=== PATIENT | female | born 1990 | race Two or more races ===

== ENCOUNTER 2020-08-31 17:18 | Emergency (ER) | payer OTHER ==
[~2020-08-31] VITALS: Ht 154.9 cm; Wt 72.6 kg
[2020-08-31] MEDS ORDERED: HUMALOG100 UNIT/2 (17:32)
[2020-08-31] MEDS ORDERED: BUTALBIT-ACETA1 EACH PO (20:32)
== END 2020-08-31 20:57 | disposition home or self-care (01) ==
LOC: ER 17:18
DX: G43.809 Other migraine, not intractable, without status migrainosus (principal); Z03.818 Encounter for observation for suspected exposure to other biological agents ruled out

== ENCOUNTER 2020-09-11 20:36 | Emergency (ER) | payer OTHER ==
[~2020-09-11] VITALS: Ht 154.9 cm; Wt 72.6 kg
[~2020-09-11 20:36] MED LIST: BUTALBIT-ACETA1 EACH PO; HUMALOG100 UNIT/2
[2020-09-11] MEDS ORDERED: JENTADUETO 2.51 EAC2 PO (20:43)
[2020-09-11] MEDS ORDERED: ZOFRAN8 MG PO (23:08)
[2020-09-11] MEDS ORDERED: CARAFATE1 GM PO (23:08)
== END 2020-09-11 23:49 | disposition home or self-care (01) ==
LOC: ER 20:36
DX: K29.60 Other gastritis without bleeding (principal)

== ENCOUNTER 2021-03-30 21:46 | Emergency (ER) | payer OTHER ==
[~2021-03-30] VITALS: Ht 154.9 cm; Wt 74.4 kg
[~2021-03-30 21:46] MED LIST changes: +CARAFATE1 GM PO; +JENTADUETO 2.51 EAC2 PO; +ZOFRAN8 MG PO
[2021-03-30] MEDS ORDERED: JANUMET 50-1,01 EACH PO (21:53)
== END 2021-03-31 10:04 | disposition home or self-care (01) ==
LOC: ER 21:46
DX: E11.65 Type 2 diabetes mellitus with hyperglycemia (principal)

== ENCOUNTER 2022-07-11 21:47 | Emergency (ER) | payer OTHER ==
[~2022-07-11] VITALS: Ht 154.9 cm; Wt 75.7 kg
[~2022-07-11 21:47] MED LIST changes: +JANUMET 50-1,01 EACH PO
[2022-07-12] MEDS ORDERED: DUI500 PO (05:55)
[2022-07-12] MEDS ORDERED: DICLOFENAC POTA50 MG PO (05:55)
[2022-07-12] MEDS ORDERED: FLUCONAZOLE150 MG PO (06:14)
== END 2022-07-12 06:34 | disposition home or self-care (01) ==
LOC: ER 21:47
DX: N39.0 Urinary tract infection, site not specified (principal); E11.9 Type 2 diabetes mellitus without complications; Z79.4 Long term (current) use of insulin